=== PATIENT | male | born 1995 | race Caucasian/White ===

== ENCOUNTER 2018-07-17 18:13 | Emergency (ER) | payer OTHER ==
[~2018-07-17] VITALS: Ht 170.2 cm; Wt 64.0 kg
[2018-07-17 18:30] VITALS: BP 116/69
--- NOTE | 2018-07-17 19:00 | NUR ---
PT AMBULATED TO ER BED 03
--- NOTE | 2018-07-17 19:00 | NUR ---
PT PRESENTS TO ED WITH LEFT RIB PAIN, 11/15, X3 WKS. PT STATES COUGH FOR 2 WKS. DENIES TRAUMA. VSS. O2SAT 100%RA. PAIN WITH MOVEMENT AND PALPATION TO LEFT RIBS. ER DM AWARE. POSITIONED IN BED FOR COMFORT. CONTINUE TO MONITOR.
[2018-07-17] MEDS ORDERED: DEXAMETHASONE 10 MG/ML VIAL PO ONE (20:15)
[2018-07-17] MEDS ORDERED: KETOROLAC 30 MG/ML VIAL IM ONE (20:15)
[2018-07-17 20:40] VITALS: BP 118/71
== END 2018-07-17 20:40 | disposition home or self-care (01) ==
LOC: MED 18:13
DX: M94.0 Chondrocostal junction syndrome [Tietze] (principal); M25.532 Pain in left wrist
CPT/HCPCS: 96372; 99283; J1100; J1885